=== PATIENT | male | born 1995 | race American Indian/Alaskan Native ===

== ENCOUNTER 2016-09-25 11:25 | Emergency (ER) | payer BC ==
[2016-09-25 12:30] LABS: Basophils % (Auto) 0.2 % (0.0-1.8); Hematocrit 46.6 % (35.5-45.6); Mean Corpuscular HGB Conc 34 % (32-34); Mean Corpuscular Hemoglobin 32 pg (28-32); Mean Corpuscular Volume 92 fl (84-94); Platelet Count 216 K/mm3 (140-440); Red Blood Count 5.07 M/mm3 (3.65-5.03); White Blood Count 10.4 K/mm3 (4.5-11.0)
[2016-09-25 12:47] LABS: Alanine Aminotransferase 19 units/L (7-56); Albumin 4.7 g/dL (3.9-5); Albumin/Globulin Ratio 1.5 %; Alkaline Phosphatase 83 units/L (35-129); Anion Gap 23 mmol/L; Blood Urea Nitrogen 14 mg/dL (9-20); Calcium 9.8 mg/dL (8.4-10.2); Carbon Dioxide 24 mmol/L (22-30); Chloride 96.5 mmol/L (98-107); Glucose 125 mg/dL (75-100); Lipase 97 units/L (13-60); Potassium 4.2 mmol/L (3.6-5.0); Sodium 139 mmol/L (137-145); Total Protein 7.9 g/dL (6.3-8.2)
[2016-09-25 13:15] LABS: Bilirubin,Urine NEG (Negative); Blood,Urine NEG (Negative); Ketones,Urine 80 mg/dL (Negative); Leukocyte Esterase,Urine MOD (Negative); Mucus,Urine 2+ /HPF; Nitrite,Urine NEG (Negative); Urobilinogen,Urine < 2.0 mg/dL (<2.0)
[2016-09-25] MEDS ORDERED: TORADOL IV ONE (17:52)
[2016-09-25] MEDS ORDERED: NACL 0.9% 1000 ML 1,000 ML IV ONE (17:52)
--- NOTE | 2016-09-25 17:57 | Emergency Department Report ---
HPI - General Chief Complaint: Nausea/Vomiting/Diarrhea - HPI HPI: Patient is a 21-year-old male presents to the ED complaining of vomiting 1 day. Patient states yesterday he had [employer] For lunch. Patient states he was unable to finish half of the burger and some fries Patient says about 20 minutes after eating the burger he started vomiting. Patient states he vomited several times that day. Patient states he vomited several times during the night. Patient states he also vomited several times early this morning and decided to come into the ER. Patient admits generalized mild abdominal pain. Patient denies fevers/chills/nausea/vomiting/chest pain/shortness of breath/ diarrhea ED Past Medical Hx - Past Medical History Previous Medical History?: No - Surgical History Past Surgical History?: No - Social History Smoking Status: Current Every Day Smoker Substance Use Type: Alcohol - Medications Home Medications: Home Medications Medication Instructions Recorded Confirmed Last Taken Type Ondansetron [Zofran Odt] 4 mg PO Q8H #10 tab.rapdis 09/25/16 Unknown Rx ED Review of Systems ROS: Stated complaint: VOMITING Other details as noted in HPI Constitutional: denies: chills, fever Eyes: denies: eye pain, eye discharge, vision change ENT: denies: ear pain, throat pain Respiratory: denies: cough, shortness of breath, wheezing Cardiovascular: denies: chest pain, palpitations Endocrine: no symptoms reported Gastrointestinal: vomiting. denies: abdominal pain, nausea, diarrhea Genitourinary: denies: urgency, dysuria, frequency, hematuria, testicular pain, testicular mass Musculoskeletal: denies: back pain, joint swelling, arthralgia Skin: denies: rash, lesions Neurological: denies: headache, weakness, paresthesias Psychiatric: denies: anxiety, depression Hematological/Lymphatic: denies: easy bleeding, easy bruising Physical Exam - Physical Exam Vital Signs: Vital Signs 09/25/16 09/25/16 12:06 12:50 Temperature 98.7 F 98.6 F Pulse Rate 56 L 61 Respiratory 17 16 Rate Blood Pressure 137/89 137/91 O2 Sat by Pulse 100 100 Oximetry Physical Exam: GENERAL: Alert and oriented x3, no apparent distress, Normal Gait, atraumatic. HEAD: Head is normocephalic and a-traumatic. EYES: Extra ocular muscles are intact. Pupils are equal, round, and reactive to light and accommodation. NECK: Supple. Non edematous, No carotid bruits. No lymphadenopathy or thyromegaly. No C-spine tenderness LUNGS: Symetrical with respiration, No wheezing, no rales or crackles, CTAB. HEART: S1, S2 present, regular rate and rhythm without murmur, no rubs, no gallops. ABDOMEN: No organomegaly was noted,Positive bowel sounds, soft, and non- distended. . Mild tender to palpation on all Quadrants, NO CVA tenderness. EXTREMITIES/MUSCULOSKELETAL: No cyanosis, clubbing, rash, lesions or edema. Full ROM bilaterally. UE/LE Pulses 2+ bilaterally. NEUROLOGIC: The patient is cooperative with no focal neurologic deficits. Cranial nerves II through XII are grossly intact. Normal speech. PSYCHIATRIC: Mood is congruent with affect, denies suicidal or homicidal ideations. SKIN: Warm and dry, No lesions, No ulceration or induration present. ED Course Vital Signs 09/25/16 09/25/16 12:06 12:50 Temperature 98.7 F 98.6 F Pulse Rate 56 L 61 Respiratory 17 16 Rate Blood Pressure 137/89 137/91 O2 Sat by Pulse 100 100 Oximetry ED Medical Decision Making - Lab Data Result diagrams: 09/25/16 12:13 09/25/16 12:13 - Medical Decision Making 21-year-old male presents with a urinary tract infection/gastroenteritis ED course: CBC, CMP, urinalysis ordered. CBC within normal limits CMP elevated glucose urinary high specific gravity positive mucus positive leukocyte esterase suggestive of a UTI Discussed all findings of patient. 1. Patient will receive normal saline 1 L, Rocephin 500, and morphine 2 mg Patient Better after Receiving Administration of IV Fluids and Medication. Usual tract infection with treated with IV Rocephin. Patient will not need outpatient antibiotic treatment. Discussed the patient will follow up with primary care physician. Discussed elevated glucose and blood in urine the patient. Patient states he is not a diabetic. Discussed the patient to follow-up to be screened. She is alert and oriented 3 patient is in no acute distress whatsoever. He is conversing appropriately with no problems. Critical care attestation.: If time is entered above; I have spent that time in minutes in the direct care of this critically ill patient, excluding procedure time. ED Disposition Clinical Impression: Allergic gastroenteritis, Acute vomiting UTI (urinary tract infection) Qualifiers: Urinary tract infection type: acute cystitis Hematuria presence: with hematuria Qualified Code(s): N30.01 - Acute cystitis with hematuria Disposition: DISCHARGED TO HOME OR SELFCARE Is pt being admited?: No Does the pt Need Aspirin: No Condition: Stable Instructions: Food Allergy (ED), Food Poisoning (ED), Acute Nausea and Vomiting (ED), Gastroenteritis (ED) Additional Instructions: Follow-up with her primary care physician. If worsening symptoms develop such as fever, diarrhea or any other problems return to ED Medication as prescribed, increase her water intake 8 to 10 glasses per day. Prescriptions: Ondansetron [Zofran Odt] 4 mg PO Q8H #10 tab.rapdis Referrals: PRIMARY MD YARON [Primary Care Provider] - 3-5 Days PAKO FORBES MD [Referring] - 3-5 Days [facility] [Outside] - 3-5 Days [facility] [Outside] - 3-5 Days Forms: Accompanied Note, Work/School Release Form(ED)
[2016-09-25] MEDS ORDERED: ZOFRAN IV NR (18:00)
[2016-09-25] MEDS ORDERED: MORPHINE IV ONE (18:06)
[2016-09-25] MEDS ORDERED: ROCEPHIN IV ONE (18:07)
[2016-09-25] MEDS ORDERED: XYLOCAINE 1% MPF 5 mL INFILTRATI ONE (18:07)
[2016-09-25] MEDS ORDERED: ZOFRAN IV STA (19:45)
[2016-09-26 01:48] VITALS: BP 125/78
== END 2016-09-25 20:55 | disposition home or self-care (01) ==
LOC: EDSEX → ED 11:25
DX: K52.29 Other allergic and dietetic gastroenteritis and colitis (principal); N30.01 Acute cystitis with hematuria; F17.200 Nicotine dependence, unspecified, uncomplicated
CPT/HCPCS: 36415; 80053; 81001; 83690; 85025; 96361; 96374; 96375; 99283; J0696; J2270; J2405; J7030

== ENCOUNTER 2016-11-27 19:51 | Emergency (ER) | payer SELFPAY ==
[2016-11-27 20:13] VITALS: BP 124/75
[2016-11-27] MEDS ORDERED: MOTRIN ONE (20:16)
[2016-11-27] MEDS ORDERED: MOTRIN PO ONE (20:18)
[2016-11-27] MEDS ORDERED: DECADRON IM ONE (21:21)
[2016-11-27] MEDS ORDERED: BICILLIN L-A IM ONE (21:21)
--- NOTE | 2016-11-27 21:29 | Emergency Department Report ---
ED General Adult HPI - General Chief complaint: Sore Throat Stated complaint: CHEST PAIN Time Seen by Provider: 11/27/16 21:18 Source: patient Mode of arrival: Ambulatory Limitations: No Limitations - History of Present Illness Initial comments: sore throat fever x 5 days , cough and chest pain x 3 days cp started after cough and post nasal drip Onset/Timin -: days(s) Severity scale (0 -10): 7 Quality: burning, aching, sharp Consistency: constant Improves with: none Worsens with: other (swallowing ) Associated Symptoms: chest pain (cp with cough only no short no sob ), cough, fever/chills, malaise. denies: confusion, diaphoresis, headaches, loss of appetite, nausea/vomiting, rash, seizure, shortness of breath, syncope, weakness Treatments Prior to Arrival: none - Related Data Previous Rx's Medication Instructions Recorded Last Taken Type Ondansetron [Zofran Odt] 4 mg PO Q8H #10 tab.rapdis 09/25/16 Unknown Rx Benzocaine/Menth/Cetylpyrd 8 each MM 2XWHS #3 packet 11/27/16 Unknown Rx [Cepacol X Strength] Ibuprofen [Motrin 800 MG tab] 800 mg PO Q8HR PRN #30 tablet 11/27/16 Unknown Rx Allergies Allergy/AdvReac Type Severity Reaction Status Date / Time No Known Allergies Allergy Unverified 09/25/16 12:04 ED Review of Systems ROS: Stated complaint: CHEST PAIN Other details as noted in HPI Constitutional: denies: chills, fever Eyes: denies: eye pain, eye discharge, vision change ENT: other (sore throat). denies: ear pain, throat pain Respiratory: other (chest wall pain with cough ). denies: cough, shortness of breath, wheezing Cardiovascular: chest pain (with cough ). denies: palpitations, dyspnea on exertion, edema, syncope, paroxysmal nocturnal dyspnea Endocrine: no symptoms reported Gastrointestinal: denies: abdominal pain, nausea, diarrhea, constipation, hematemesis, melena, hematochezia Genitourinary: denies: urgency, dysuria Musculoskeletal: denies: back pain, joint swelling, arthralgia Skin: denies: rash, lesions Neurological: denies: headache, weakness, paresthesias Psychiatric: denies: anxiety, depression Hematological/Lymphatic: denies: easy bleeding, easy bruising ED Past Medical Hx - Past Medical History Previous Medical History?: No - Surgical History Past Surgical History?: No - Social History Smoking Status: Current Every Day Smoker Substance Use Type: Alcohol - Medications Home Medications: Home Medications Medication Instructions Recorded Confirmed Last Taken Type Ondansetron [Zofran Odt] 4 mg PO Q8H #10 tab.rapdis 09/25/16 Unknown Rx Benzocaine/Menth/Cetylpyrd 8 each MM 2XWHS #3 packet 11/27/16 Unknown Rx [Cepacol X Strength] Ibuprofen [Motrin 800 MG tab] 800 mg PO Q8HR PRN #30 tablet 11/27/16 Unknown Rx ED Physical Exam - General Limitations: No Limitations General appearance: alert, in no apparent distress - Head Head exam: Present: atraumatic - Eye Eye exam: Present: normal appearance, PERRL, EOMI Pupils: Present: normal accommodation - ENT ENT exam: Present: TM's normal bilaterally, normal external ear exam - Expanded ENT Exam Expanded Mouth exam: Present: normal external inspection, tongue normal, other ( tonsilarmegaly erythema white exudate, swelling, uvula midline ). Absent: trismus, tongue elevation, laceration Teeth exam: Present: normal inspection Throat exam: Positive: tonsillar erythema, tonsillomegaly, tonsillar exudate. Negative: R peritonsillar mass, L peritonsillar mass - Neck Neck exam: Present: normal inspection, full ROM, lymphadenopathy. Absent: tenderness, thyromegaly - Respiratory Respiratory exam: Present: normal lung sounds bilaterally, chest wall tenderness. Absent: respiratory distress, wheezes, rales, rhonchi, stridor, accessory muscle use, decreased breath sounds, prolonged expiratory - Cardiovascular Cardiovascular Exam: Present: regular rate, normal rhythm. Absent: systolic murmur, diastolic murmur, rubs, gallop - GI/Abdominal GI/Abdominal exam: Present: soft, normal bowel sounds - Rectal Rectal exam: Present: deferred - Extremities Exam Extremities exam: Present: normal inspection, full ROM - Back Exam Back exam: Present: normal inspection, full ROM. Absent: tenderness, CVA tenderness (R), CVA tenderness (L), muscle spasm, paraspinal tenderness, vertebral tenderness, rash noted - Neurological Exam Neurological exam: Present: alert, oriented X3, CN II-XII intact, normal gait, reflexes normal. Absent: motor sensory deficit - Psychiatric Psychiatric exam: Present: normal affect, normal mood - Skin Skin exam: Present: warm, dry, intact. Absent: rash ED Course Vital Signs 11/27/16 11/27/16 20:10 20:20 Temperature 100.3 F H Pulse Rate 97 H Respiratory 20 20 Rate Blood Pressure 124/75 O2 Sat by Pulse 97 Oximetry ED Medical Decision Making - Radiology Data Radiology results: image reviewed no opacities no infiltrates - Medical Decision Making pt is a 21 y/o aam with nmh who presents for throat pain and dysphagia 5 days sudden onset after sick contact child, pt endorses malaise loss of appetite cough and cp with cough pt denies sob no n/v no short no pnd, exam: pharynx: moderate erythema white exudate, tonsilarmegaly swelling, uvula midline airway patent, no stridor lungs clear bilat no wheezing , cxr: normal , plan: decadron , bicillin IM, dc to self with ibuprofen, cepachol throat lozenges pt will return to emegency if symptoms not improving, Critical care attestation.: If time is entered above; I have spent that time in minutes in the direct care of this critically ill patient, excluding procedure time. ED Disposition Clinical Impression: Bacterial pharyngitis Disposition: DC-01 TO HOME OR SELFCARE Is pt being admited?: No Does the pt Need Aspirin: No Condition: Good Instructions: Pharyngitis (ED) Prescriptions: Benzocaine/Menth/Cetylpyrd [Cepacol X Strength] 8 each MM 2XWHS #3 packet Ibuprofen [Motrin 800 MG tab] 800 mg PO Q8HR PRN #30 tablet PRN Reason: pain Referrals: PRIMARY CARE,MD [Primary Care Provider] - 3-5 Days Forms: Work/School Release Form(ED) Time of Disposition: 21:42
--- NOTE | 2016-11-27 21:42 | XRay Report ---
FINAL REPORT PROCEDURE: XR CHEST 1V AP TECHNIQUE: Chest radiograph anteroposterior view. CPT 55745 HISTORY: Chest pain COMPARISON: No prior studies are available for comparison. FINDINGS: Heart: Normal. Mediastinum/Vessels: Normal. Lungs/Pleural space: Normal. Bony thorax: No acute osseous abnormality. Life support devices: None. IMPRESSION: Negative exam..
== END 2016-11-27 21:45 | disposition home or self-care (01) ==
LOC: ED 19:51
DX: J02.9 Acute pharyngitis, unspecified (principal); F17.200 Nicotine dependence, unspecified, uncomplicated
CPT/HCPCS: 71010; 93005; 93010; 96372; 99283; J0561; J1100

== ENCOUNTER 2017-05-09 17:26 | Emergency (ER) | payer SELFPAY ==
[2017-05-09 17:56] VITALS: BP 107/69
== END 2017-05-09 18:00 | disposition left against medical advice (07) ==
LOC: ED 17:26
DX: T62.91XA Toxic effect of unspecified noxious substance eaten as food, accidental (unintentional), initial encounter (principal); Z53.21 Procedure and treatment not carried out due to patient leaving prior to being seen by health care provider; Y93.89 Activity, other specified; Y99.8 Other external cause status; Y92.89 Other specified places as the place of occurrence of the external cause